=== PATIENT | male | born 1995 | race African-American/Black ===

== ENCOUNTER 2018-10-23 20:15 | Emergency (ER) | payer MEDICAID ==
[~2018-10-23] VITALS: Ht 167.6 cm; Wt 64.0 kg
[2018-10-24] MEDS ORDERED: ACETAMINOPHEN 500MG TABLET PO ONE (00:30)
[2018-10-24 01:00] VITALS: BP 117/70
== END 2018-10-24 01:46 | disposition home or self-care (01) ==
LOC: ER 21:25
DX: S62.314A Displaced fracture of base of fourth metacarpal bone, right hand, initial encounter for closed fracture (principal); S62.316A Displaced fracture of base of fifth metacarpal bone, right hand, initial encounter for closed fracture; Y04.0XXA Assault by unarmed brawl or fight, initial encounter; Y93.89 Activity, other specified; Y92.89 Other specified places as the place of occurrence of the external cause
CPT/HCPCS: 29125; 73110; 73130; 99283

== ENCOUNTER 2025-06-13 15:42 | Emergency (ER) | payer MEDICAID ==
[~2025-06-13] VITALS: Ht 185.4 cm; Wt 80.0 kg
[2025-06-13 15:47] VITALS: O2SAT 100
[2025-06-13 16:30] VITALS: BP 120/78; PULSE 67; RESP 14; TEMP 36.8; O2SAT 100
== END 2025-06-13 16:31 | disposition home or self-care (01) ==
LOC: ER 15:42
DX: H04.209 Unspecified epiphora, unspecified side (principal)
CPT/HCPCS: 99283